=== PATIENT | female | born 1955 | race Caucasian/White ===

== ENCOUNTER 2018-07-03 05:50 | Day surgery (SDC) | payer OTHER ==
[2018-06-29 10:27] LABS: Basophils # (auto) 0.1 uL; Basophils % (auto) 2.4 % (0.0-2.0); Eosinophils # (auto) 0.2 uL; Eosinophils % (auto) 3.3 % (0.0-7.0); Hematocrit 41.3 % (36.0-46.0); Hemoglobin 14.3 g/dL (12.2-16.2); Lymphocytes # (auto) 1.7 uL; Lymphocytes % (auto) 36.8 % (10.0-50.0); Mean Corpuscular Hemoglobin 32.7 pg (28.0-32.0); Mean Corpuscular Hgb Conc. 34.8 g/dL (32.0-36.0); Mean Corpuscular Volume 94.2 fL (80.0-100.0); Monocytes # (auto) 0.4 uL; Monocytes % (auto) 8.4 % (0.0-12.0); Neutrophils # (auto) 2.3 uL; Neutrophils % (auto) 49.1 % (37.0-80.0); Nucleated Red Blood Cells % 0.1 %; Platelet Count (auto) 260 10^3/uL (140-450); Red Blood Cells 4.38 10^6/uL (4.0-5.20); Red Cell Distribution Width 11.8 % (11.8-14.3); White Blood Cell 4.6 10^3/uL (4.4-10.8)
[2018-06-29 10:30] LABS: Urine Bacteria NONE SEEN /hpf (None Seen); Urine Blood Negative /uL (Negative); Urine Specific Gravity 1.018 (1.001-1.035); Urine WBC <1 /hpf (0 - 5)
[2018-06-29 10:43] LABS: INR 0.97 (0.9-1.15); Partial Thromboplastin Time 26.4 sec (23.78-33.04); Prothrombin Time 10.4 sec (9.27-12.13)
[2018-06-29 10:58] LABS: Albumin 3.9 g/dL (3.4-5.0); BUN/Creatinine Ratio 19.7; Bilirubin, Total 0.6 mg/dL (0.2-1.0); Calcium 8.7 mg/dL (8.5-10.1); Potassium 3.9 mmol/L (3.5-5.1); Total Protein 7.9 g/dL (6.4-8.2)
[~2018-07-03] VITALS: Ht 167.6 cm; Wt 59.0 kg
[~2018-07-03 05:50] MED LIST: GEMF600T3 PO; MESA0.37 PO; OME20GT GT; PITA4TAB PO
[2018-07-03] MEDS ORDERED: ceFAZolin 1GM/50ML 50 ML IV ONE (06:39)
[2018-07-03] MEDS ORDERED: BUPIVACAINE W/ EPINEPH 0.25% INJ 50ML MDV ONE (06:57)
[2018-07-03] MEDS ORDERED: BUPIVACAINE 0.25% INJ 50ML VIAL ONE (06:57)
[2018-07-03] MEDS ORDERED: MORPHINE SULF(PF) 0.5MG/ML 10ML VIAL ONE (07:04)
[2018-07-03] MEDS ORDERED: methylPREDNISolone ACETATE 80 MG/ML VL ONE (07:13)
[2018-07-03] MEDS ORDERED: SUCCINYLCHOLINE CHLORIDE 20 MG/ML 10ML VIAL IV ONE (07:19)
[2018-07-03] MEDS ORDERED: LIDOCAINE 1% HCL (LOCAL ANESTH.) INJ 20ML MDV ONE (07:19)
[2018-07-03] MEDS ORDERED: METOCLOPRAMIDE HCL 5MG/ml INJ 2ml VIAL ONE (07:26)
[2018-07-03] MEDS ORDERED: PROPOFOL 10 MG/ML 20 ML IV ONE (07:26)
[2018-07-03] MEDS ORDERED: ROCURONIUM 10MG/ML 10ML VIAL IV ONE (07:27)
[2018-07-03] MEDS ORDERED: MIDAZOLAM HCL 1MG/1ML-2 ML VIAL ONE (07:31)
[2018-07-03] MEDS ORDERED: fentaNYL CITRATE 100 MCG/2 ML VL ONE (07:58)
[2018-07-03] MEDS ORDERED: ONDANSETRON HCL 4 MG/2 ML VIAL IV ONE (08:15)
[2018-07-03] MEDS ORDERED: MORPHINE SULFATE 4 MG/ML SYR/VIAL IV PRN (08:15)
[2018-07-03] MEDS ORDERED: NALOXONE HCL 0.4 MG/ML VIAL IV PRN (08:15)
[2018-07-03] MEDS ORDERED: KETOROLAC TROMETH 30 MG/ML 1ML VIAL ONE (08:34)
[2018-07-03 10:16] VITALS: BP 122/67
== END 2018-07-03 10:26 | disposition home or self-care (01) ==
LOC: SUR 05:50
PROVIDERS: ATTEND Orthopaedic Surgery
DX: S83.271A Complex tear of lateral meniscus, current injury, right knee, initial encounter (principal); M94.20 Chondromalacia, unspecified site; S83.91XA Sprain of unspecified site of right knee, initial encounter; M71.21 Synovial cyst of popliteal space [Baker], right knee; I10 Essential (primary) hypertension; E78.00 Pure hypercholesterolemia, unspecified; K21.9 Gastro-esophageal reflux disease without esophagitis; M19.90 Unspecified osteoarthritis, unspecified site; Z98.890 Other specified postprocedural states; Z79.899 Other long term (current) drug therapy; X58.XXXA Exposure to other specified factors, initial encounter; Y93.89 Activity, other specified; Y92.89 Other specified places as the place of occurrence of the external cause; Y99.8 Other external cause status
CPT/HCPCS: 20610; 29881; 36415; 80053; 81001; 85025; 85610; 85730; A6257; J0330; J0690; J1885; J2001; J2250; J2270; J2704; J2765; J3010; J3490